=== PATIENT | male | born 1955 | race Caucasian/White ===

== ENCOUNTER → 2022-04-01 10:59 | Outpatient (REF) | payer OTHER, SELFPAY | LOC: ANHLAB 10:59 | PROVIDERS: Visit Provider Nurse Practitioner | DX: C44.319 Basal cell carcinoma of skin of other parts of face (principal); D49.2 Neoplasm of unspecified behavior of bone, soft tissue, and skin | CPT/HCPCS: 88305 ==

== ENCOUNTER → 2022-06-09 08:31 | Outpatient (REF) | payer OTHER, SELFPAY | LOC: ANHLAB 08:31 | PROVIDERS: Visit Provider Nurse Practitioner | DX: C44.319 Basal cell carcinoma of skin of other parts of face (principal); C44.519 Basal cell carcinoma of skin of other part of trunk | CPT/HCPCS: 88305; 88331 ==

== ENCOUNTER 2023-07-21 09:00 | Outpatient (NON) | payer OTHER, SELFPAY | END 2023-07-21 09:01 | disposition home or self-care (01) | LOC: ANHLAB 07-22 12:31 | PROVIDERS: PCP Physician Assistant Medical; Visit Provider Nurse Practitioner | DX: C44.311 Basal cell carcinoma of skin of nose (principal) | CPT/HCPCS: 88305 ==

== ENCOUNTER 2023-08-24 12:08 | Outpatient (NON) | payer OTHER, SELFPAY | END 2023-08-24 12:09 | disposition home or self-care (01) | LOC: ANHLAB 12:08 | PROVIDERS: PCP Physician Assistant Medical; Visit Provider Nurse Practitioner | DX: C44.311 Basal cell carcinoma of skin of nose (principal); C44.212 Basal cell carcinoma of skin of right ear and external auricular canal | CPT/HCPCS: 88305; 88331 ==

== ENCOUNTER 2023-08-31 13:53 | Outpatient (NON) | payer OTHER, SELFPAY | END 2023-08-31 13:54 | disposition home or self-care (01) | LOC: ANHLAB 13:53 | PROVIDERS: PCP Physician Assistant Medical; Visit Provider Nurse Practitioner | DX: C44.519 Basal cell carcinoma of skin of other part of trunk (principal) | CPT/HCPCS: 88305; 88331 ==

== ENCOUNTER 2023-11-16 07:00 | Outpatient (NON) | payer OTHER, SELFPAY | END 2023-11-16 07:01 | disposition home or self-care (01) | LOC: ANHLAB 11-18 11:35 | PROVIDERS: PCP Physician Assistant Medical; Visit Provider Nurse Practitioner | DX: C44.212 Basal cell carcinoma of skin of right ear and external auricular canal (principal) | CPT/HCPCS: 88305 ==

== ENCOUNTER 2024-02-05 14:36 | Outpatient (CLI) | payer OTHER, SELFPAY ==
--- NOTE | ~2024-02-05 | CT_ITS ---
EXAMINATION: CT hip RT wo con DATE: 02/05/2024 14:54 INDICATION: Right hip pain TECHNIQUE: High resolution computed tomography (CT) of the right hip was performed without intravenou s contrast. Additional sagittal and coronal reconstructions were performed. Automated exposure contro l and iterative reconstruction technique were employed. The dose-length product was 552.65 mGy-cm. COMPARISON: None FINDINGS: 4 mm retrolisthesis L5 on S1 with severe associated disc height loss. Bone alignment is otherwise nor mal. No fracture or osteonecrosis. Mild osteoarthritis at the right hip and sacroiliac joints. There marginal osteophytes replacing the labral tissue along the rim of the right acetabulum. No right hip joint effusion. The visualized portion of the bowels and bladder are normal. Prostatomegaly measuring 5.3 x 4.3 cm. There are a 5 small sclerotic lesions in the right innominate bone the largest measuri ng 1.2 cm IMPRESSION: 1. Mild right hip and sacroiliac osteoarthritis. No acute osseous abnormality. 2. Severe spondylosis at the lumbosacral junction. 3. A few small sclerotic bone lesions in the right innominate bone which could represent bone islands although differential would include metastatic disease including prostate cancer. Consider bone scan for further evaluation. Line 4. Prostatomegaly. Reviewed, dictated and finalized at location A. [employer] IMPRESSION: 1. Mild right hip and sacroiliac osteoarthritis. No acute osseous abnormality. 2. Severe spondylosis at the lumbosacral junction. 3. A few small sclerotic bone lesions in the right innominate bone which could represent bone islands although differential would include metastatic disease i ncluding prostate cancer. Consider bone scan for further evaluation. Line 4. Pr ostatomegaly.
== END 2024-02-05 14:37 ==
PROVIDERS: PCP Nurse Practitioner Family; Visit Provider Nurse Practitioner Family
DX: M16.11 Unilateral primary osteoarthritis, right hip (principal); M53.3 Sacrococcygeal disorders, not elsewhere classified; M47.896 Other spondylosis, lumbar region
CPT/HCPCS: 73700

== ENCOUNTER 2024-02-09 08:56 | Outpatient (CLI) | payer OTHER, SELFPAY ==
--- NOTE | ~2024-02-09 | NM_ITS ---
. EXAMINATION: NM bone scan limited area DATE: 02/09/2024 13:17 INDICATION: Sclerotic lesions of right innominate bone. TECHNIQUE: 25.7 mCi Tc-99m HDP was administered intravenously. Delayed whole-body scintigrams were o btained. COMPARISON: CT right hip 02/05/2024. FINDINGS: There is no abnormal increased activity to correlate with the sclerotic lesions seen by CT. IMPRESSION: 1. No abnormal increased activity to correlate with the sclerotic lesion seen by CT, likely benign [place] islands. Reviewed, dictated and finalized at location A. IMPRESSION: 1. No abnormal increased activity to correlate with the sclerotic lesion seen b y CT, likely benign bone islands.
== END 2024-02-09 08:57 | disposition home or self-care (01) ==
PROVIDERS: PCP Nurse Practitioner Family; Visit Provider Nurse Practitioner Family
DX: M89.8X5 Other specified disorders of bone, thigh (principal); M25.551 Pain in right hip
CPT/HCPCS: 78300; A9503